=== PATIENT | female | born 1950 | race Caucasian/White ===

== ENCOUNTER 2025-09-10 20:37 | Inpatient (IN) | payer MEDICARE ==
[~2025-09-10] VITALS: Ht 167.6 cm; Wt 76.7 kg
[~2025-09-10 20:37] MED LIST: AMLO-257 PO; CEFT2VIA60 IV; DOCU-385 PO; MELA5TAB40 PO; QUET25TA PO; TAMS0.4C94 PO
[2025-09-10] MEDS: SODIUM CHLORIDE 0.9% 1,000 ML IV ONE (22:27)
[2025-09-10 22:50] LABS: PLATELET COUNT (AUTO) 364 K/uL (150-450); RED BLOOD CELL COUNT(AUTO) 4.29 MIL/uL (4.00-5.20); RED CELL DISTRIBUTION WIDTH 12.9 % (11.5-14.5); WHITE BLOOD COUNT (AUTO) 11.4 K/uL (4.5-11.0)
[2025-09-10 22:59] LABS: CALCIUM, TOTAL 9.8 mg/dL (8.8-10.5); CREATININE 0.76 mg/dL (0.60-1.30); GLOMERULAR FILTR. RATE CALC > 60 mL/min (>60); GLUCOSE,RANDOM 113 mg/dL (70-110); SODIUM SERUM 144 mmol/L (136-145); UREA NITROGEN, BLOOD 22 mg/dL (7-18)
[2025-09-10 23:08] LABS: LACTIC ACID 1.4 mmol/L (0.4-2.0)
[2025-09-10 23:59] LABS: APPEARANCE,URINE CLEAR (CLEAR); GLUCOSE, URINE (UA) NEGATIVE (NEGATIVE); LEUKOCYTE ESTERASE ,URINE MODERATE (NEGATIVE); NITRATE,URINE NEGATIVE (NEGATIVE); OCCULT BLOOD,URINE SMALL (NEGATIVE); SPECIFIC GRAVITIY, URINE 1.026 (1.003-1.030)
[2025-09-11] MEDS ORDERED: BISACODYL 10 MG RECTAL RECTAL SUPPOSITORY PR PRN
[2025-09-11] MEDS ORDERED: ACETAMINOPHEN 325 MG TABLET PO PRN
[2025-09-11] MEDS ORDERED: ONDANSETRON HCL 4 MG/2 ML VIAL IVP PRN
[2025-09-11 00:06] LABS: SQUAMOUS EPITHELIAL CELL,UR Rare /LPF (None Seen)
[2025-09-11] MEDS: SODIUM CHLORIDE 0.9% 1,000 ML IV ONE (00:15)
[2025-09-11] MEDS: HEPARIN SODIUM,PORCINE 5,000 UNITS/ML VIAL SQ SCH (00:15)
[2025-09-11] MEDS: CefTRIAXone 1 GM/DEXTROSE 50 ML IV ONE (00:51)
[2025-09-11 08:00] VITALS: BP 131/83; PULSE 88; RESP 18; TEMP 97.9; O2SAT 97
[2025-09-11] MEDS: FAMOTIDINE 20 MG TABLET PO SCH (09:00)
[2025-09-11] MEDS: CefTRIAXone 1 GM/DEXTROSE 50 ML IV SCH (12:06)
[2025-09-11 15:11] VITALS: BP 153/83; PULSE 98; RESP 20; TEMP 97.7; O2SAT 98
[2025-09-11 20:00] VITALS: BP 115/98; PULSE 109; RESP 20; TEMP 98.1; O2SAT 96
[2025-09-12 05:23] VITALS: BP 150/89; PULSE 84; RESP 18; TEMP 98.1; O2SAT 96
[2025-09-12 08:00] VITALS: BP 143/70; PULSE 88; RESP 19; TEMP 97.9; O2SAT 95
[2025-09-12 16:00] VITALS: BP 148/88; PULSE 97; RESP 20; TEMP 99; O2SAT 96
[2025-09-12 20:26] VITALS: BP 137/67; PULSE 92; RESP 18; TEMP 97.9; O2SAT 95
[2025-09-13 04:45] VITALS: BP 138/71; PULSE 80; RESP 16; TEMP 97.5; O2SAT 96
[2025-09-13 06:57] LABS: PLATELET COUNT (AUTO) 428 K/uL (150-450); RED BLOOD CELL COUNT(AUTO) 4.32 MIL/uL (4.00-5.20); RED CELL DISTRIBUTION WIDTH 12.8 % (11.5-14.5); WHITE BLOOD COUNT (AUTO) 8.2 K/uL (4.5-11.0)
[2025-09-13 07:13] LABS: CALCIUM, TOTAL 9.2 mg/dL (8.8-10.5); CREATININE 0.88 mg/dL (0.60-1.30); GLOMERULAR FILTR. RATE CALC > 60 mL/min (>60); GLUCOSE,RANDOM 110 mg/dL (70-110); SODIUM SERUM 140 mmol/L (136-145); UREA NITROGEN, BLOOD 16 mg/dL (7-18)
[2025-09-13 07:23] VITALS: BP 153/75; PULSE 94; RESP 18; TEMP 98.8; O2SAT 96
[2025-09-13 16:36] VITALS: BP 137/70; PULSE 86; RESP 18; TEMP 98.6; O2SAT 96
[2025-09-13] MEDS: POTASSIUM CHLORIDE 20 MEQ ER TABLET PO ONE (18:03)
[2025-09-13 19:30] VITALS: BP 131/69; PULSE 102; RESP 18; TEMP 97.7; O2SAT 95
[2025-09-13] MEDS ORDERED: LORazepam 2 MG/ML VIAL IM ONE (22:00)
[2025-09-14 04:45] VITALS: BP 138/82; PULSE 83; RESP 18; TEMP 97.5; O2SAT 96
[2025-09-14 07:44] VITALS: BP 138/70; PULSE 91; RESP 18; TEMP 97.9; O2SAT 95
[2025-09-14] MEDS ORDERED: SODIUM CHLORIDE 0.9% 500 ML IV ONE (10:57)
[2025-09-14 15:24] VITALS: BP 145/88; PULSE 101; RESP 18; TEMP 97.8; O2SAT 95
== END 2025-09-14 18:22 | DRG 92 ==
LOC: EMS 20:37 → EDH 23:47 → 6N 09-11 08:41 → 6S 09-11 16:33
PROVIDERS: ADMIT Internal Medicine; ATTEND Internal Medicine
DX: G92.9 Unspecified toxic encephalopathy (principal); N39.0 Urinary tract infection, site not specified; E86.0 Dehydration; I10 Essential (primary) hypertension; F20.9 Schizophrenia, unspecified; F03.90 Unspecified dementia, unspecified severity, without behavioral disturbance, psychotic disturbance, mood disturbance, and anxiety; E87.6 Hypokalemia; Z88.2 Allergy status to sulfonamides
CPT/HCPCS: 51702; 71045; 80048; 81001; 82271; 83605; 84132; 85025; 87040; 87081; 87086; 92610; 97116; 97162; 97530; 99285; G0378; J0696; J1644; J7040; 36415-L1; 36415-TC

== ENCOUNTER 2025-09-16 20:58 | Emergency (ER) | payer MEDICARE ==
[~2025-09-16] VITALS: Ht 157.5 cm; Wt 54.5 kg
[~2025-09-16 20:58] MED LIST changes: -CEFT2VIA60 IV; -DOCU-385 PO
[2025-09-16 21:41] VITALS: TEMP 98.1
[2025-09-16 23:25] LABS: PLATELET COUNT (AUTO) 507 K/uL (150-450); RED BLOOD CELL COUNT(AUTO) 4.47 MIL/uL (4.00-5.20); RED CELL DISTRIBUTION WIDTH 13.3 % (11.5-14.5); WHITE BLOOD COUNT (AUTO) 11.4 K/uL (4.5-11.0)
[2025-09-16] MEDS: SODIUM CHLORIDE 0.9% 1,000 ML IV ONE (23:30)
[2025-09-16 23:36] LABS: CALCIUM, TOTAL 9.8 mg/dL (8.8-10.5); CREATININE 1.0 mg/dL (0.60-1.30); GLOMERULAR FILTR. RATE CALC 54.0 mL/min (>60); GLUCOSE,RANDOM 112.0 mg/dL (70-110); SODIUM SERUM 139.0 mmol/L (136-145); UREA NITROGEN, BLOOD 17.0 mg/dL (7-18)
[2025-09-16 23:38] LABS: COVID AG,FIA SOURCE NASAL SWAB
[2025-09-16 23:40] LABS: APPEARANCE,URINE CLEAR (CLEAR); GLUCOSE, URINE (UA) NEGATIVE (NEGATIVE); LEUKOCYTE ESTERASE ,URINE NEGATIVE (NEGATIVE); NITRATE,URINE NEGATIVE (NEGATIVE); OCCULT BLOOD,URINE NEGATIVE (NEGATIVE); PH,URINE DRUG SCREEN 5.0 (5.0-8.0); SPECIFIC GRAVITIY, URINE 1.000 (1.003-1.030)
[2025-09-16 23:47] LABS: AMPHET/METH SCREEN,URINE NEGATIVE (NEGATIVE); BARBITURATE SCREEN, URINE NEGATIVE (NEGATIVE); CANNABINOID SCREEN,URINE NEGATIVE (NEGATIVE); COCAINE SCREEN,URINE NEGATIVE (NEGATIVE); METHADONE SCREEN, URINE NEGATIVE (NEGATIVE)
[2025-09-16 23:48] LABS: ALCOHOL, URINE DRUG SCREEN NEGATIVE (NEGATIVE)
[2025-09-16 23:58] LABS: SARS-COV2 (COVID) ANTIGEN,FIA Negative (Negative)
[2025-09-17 03:06] VITALS: BP 155/89; PULSE 90; RESP 16; O2SAT 96
== END 2025-09-17 03:37 ==
LOC: EMS 20:58
DX: F03.90 Unspecified dementia, unspecified severity, without behavioral disturbance, psychotic disturbance, mood disturbance, and anxiety (principal); F20.9 Schizophrenia, unspecified; I10 Essential (primary) hypertension; Z88.2 Allergy status to sulfonamides; Z79.899 Other long term (current) drug therapy; Z20.822 Contact with and (suspected) exposure to COVID-19
CPT/HCPCS: 99284; 87426; 80048; 81003; 85025; 36415; 80307; G0480